=== PATIENT | male | born 1995 | race Caucasian/White ===

== ENCOUNTER 2019-06-14 20:25 | Emergency (ER) | payer SELFPAY ==
--- NOTE | 2019-06-14 20:34 | EDM.PDOCBH ---
<Williams Rosas - Last Filed: 06/14/19 20:32> ED HPI GENERAL MEDICAL PROBLEM - General Chief Complaint: Behavioral/Psych Stated Complaint: LAW ENFORCEMENT Time Seen by Provider: 06/14/19 20:27 Source of Information: Reports: Patient History Limitations: Reports: No Limitations - History of Present Illness INITIAL COMMENTS - FREE TEXT/NARRATIVE: Patient is an unfortunate 24-year-old male who presents emergency Department today with complaint of suicidal ideation. 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 Since that time patient has had suicidal thoughts he has not developed a specific plan and he does have history of suicidal ideation with admission to psychiatric facility last time in 2016 in [place]. He is not on any medication at this time and is requesting help with his suicidal thoughts - Related Data Allergies Allergy/AdvReac Type Severity Reaction Status Date / Time No Known Allergies Allergy Verified 06/14/19 20:30 Home Meds: Home Meds LORazepam [Ativan] 0.5 mg PO Q8H #12 tablet 06/15/19 [Rx] ED ROS GENERAL - Review of Systems Review Of Systems: See Below Constitutional: Denies: Fever, Chills Psychiatric: Reports: Anxiety, Depression, Suicidal Ideation. Denies: Agitation , Confusion ED EXAM, BEHAVIORAL HEALTH - Physical Exam Exam: See Below Exam Limited By: No Limitations General Appearance: Alert, WD/WN, Mild Distress, Other (Avoids eye contact) Throat/Mouth: Normal Inspection, Normal Lips, Normal Teeth, Normal Gums, Normal Oropharynx, Normal Voice, No Airway Compromise Head: Atraumatic, Normocephalic Neck: Normal Inspection, Supple, Non-Tender, Full Range of Motion Respiratory/Chest: No Respiratory Distress, Lungs Clear, Normal Breath Sounds, No Accessory Muscle Use, Chest Non-Tender Cardiovascular: Normal Peripheral Pulses, Regular Rate, Rhythm, No Edema, No Gallop, No JVD, No Murmur, No Rub Back Exam: Normal Inspection, Full Range of Motion, NT Extremities: Normal Inspection, Normal Range of Motion, Non-Tender, Normal Capillary Refill, No Pedal Edema Neurological: Alert, Oriented x 3. No: Normal Mood/Affect Psychiatric: Alert, Depressed Mood, Tearful, Suicidal Thoughts. No: Suicidal Plan Skin Exam: Warm, Dry COURSE, BEHAVIORAL HEALTH COMP - Course Vital Signs: Last Vital Signs Temp 36.4 C 06/15/19 08:10 Pulse 74 06/15/19 08:10 Resp 16 06/15/19 08:10 BP 121/76 06/15/19 08:10 Pulse Ox 96 06/15/19 08:10 Orders, Labs, Meds: Laboratory Tests 06/14/19 06/14/19 06/14/19 Range/Units 20:35 20:35 20:40 WBC 10.12 H (4.23-9.07) K/mm3 RBC 5.15 (4.63-6.08) M/mm3 Hgb 16.1 (13.7-17.5) gm/dl Hct 46.4 (40.1-51.0) % MCV 90.1 (79.0-92.2) fl MCH 31.3 (25.7-32.2) pg MCHC 34.7 (32.2-35.5) g/dl RDW Std Deviation 40.7 (35.1-43.9) fL Plt Count 351 H (163-337) K/mm3 MPV 10.0 (9.4-12.3) fl Neut % (Auto) 61.9 (34.0-67.9) % Lymph % (Auto) 25.7 (21.8-53.1) % Whiteside % (Auto) 8.4 (5.3-12.2) % Eos % (Auto) 3.5 (0.8-7.0) Baso % (Auto) 0.3 (0.1-1.2) % Neut # (Auto) 6.27 H (1.78-5.38) K/mm3 Lymph # (Auto) 2.60 (1.32-3.57) K/mm3 Whiteside # (Auto) 0.85 H (0.30-0.82) K/mm3 Eos # (Auto) 0.35 (0.04-0.54) K/mm3 Baso # (Auto) 0.03 (0.01-0.08) K/mm3 Manual Slide Review Normal smear Sodium (136-145) mEq/L Potassium (3.5-5.1) mEq/L Chloride (98-107) mEq/L Carbon Dioxide (21-32) mEq/L Anion Gap (5-15) BUN (7-18) mg/dL Creatinine (0.7-1.3) mg/dL Est Cr Clr Drug Dosing mL/min Estimated GFR (MDRD) (>60) mL/min BUN/Creatinine Ratio (14-18) Glucose (74-106) mg/dL Calcium (8.5-10.1) mg/dL Total Bilirubin (0.2-1.0) mg/dL AST (15-37) U/L ALT (16-63) U/L Alkaline Phosphatase (46-116) U/L Total Protein (6.4-8.2) g/dl Albumin (3.4-5.0) g/dl Globulin gm/dL Albumin/Globulin Ratio (1-2) TSH 3rd Generation (0.358-3.74) uIU/mL Urine Color Yellow (Yellow) Urine Appearance Clear (Clear) Urine pH 5.5 (5.0-8.0) Ur Specific [place] > or = 1.030 (1.005-1.030) Urine Protein 1+ H (Negative) Urine Glucose (UA) Negative (Negative) Urine Ketones Negative (Negative) Urine Occult Blood Negative (Negative) Urine Nitrite Negative (Negative) Urine Bilirubin Negative (Negative) Urine Urobilinogen 0.2 (0.2-1.0) Ur Leukocyte Esterase Negative (Negative) Urine RBC 0-5 (0-5) /hpf Urine WBC 0-5 (0-5) /hpf Ur Squamous Epith Cells 0-5 (0-5) /hpf Urine Bacteria Few (FEW) /hpf Urine Mucus Moderate H (FEW) /hpf Salicylates (2.8-20) mg/dL Urine Opiates Screen Negative (VNCQUN=325) Ur Buprenorphine Scrn Negative (CUTOFF=10) Ur Oxycodone Screen Negative (FHJ9IP=461) Urine Methadone Screen Negative (DEF8VK=554) Ur Propoxyphene Screen Negative (FFSBKB=374) Acetaminophen (10-30) ug/mL Ur Barbiturates Screen Negative (AMNJXW=559) Ur Tricyclics Screen Negative (EMLXEF=443) Ur Phencyclidine Scrn Negative (CUTOFF=25) Ur Amphetamine Screen Presumptive positive H (ZFXDQM=565) U Methamphetamines Scrn Presumptive positive H (MREUDF=455) U Benzodiazepines Scrn Negative (KXHQYT=885) U Cocaine Metab Screen Presumptive positive H (YAMDGF=545) U Marijuana (THC) Screen Presumptive positive H (CUTOFF=50) Ethyl Alcohol (0.00) gm% 06/14/19 06/14/19 Range/Units 20:40 20:40 WBC (4.23-9.07) K/mm3 RBC (4.63-6.08) M/mm3 Hgb (13.7-17.5) gm/dl Hct (40.1-51.0) % MCV (79.0-92.2) fl MCH (25.7-32.2) pg MCHC (32.2-35.5) g/dl RDW Std Deviation (35.1-43.9) fL Plt Count (163-337) K/mm3 MPV (9.4-12.3) fl Neut % (Auto) (34.0-67.9) % Lymph % (Auto) (21.8-53.1) % Whiteside % (Auto) (5.3-12.2) % Eos % (Auto) (0.8-7.0) Baso % (Auto) (0.1-1.2) % Neut # (Auto) (1.78-5.38) K/mm3 Lymph # (Auto) (1.32-3.57) K/mm3 [place] # (Auto) (0.30-0.82) K/mm3 Eos # (Auto) (0.04-0.54) K/mm3 Baso # (Auto) (0.01-0.08) K/mm3 Manual Slide Review Sodium 142 (136-145) mEq/L Potassium 4.0 (3.5-5.1) mEq/L Chloride 104 (98-107) mEq/L Carbon Dioxide 26 (21-32) mEq/L Anion Gap 16.0 H (5-15) BUN 14 (7-18) mg/dL Creatinine 1.1 (0.7-1.3) mg/dL Est Cr Clr Drug Dosing 116.02 mL/min Estimated GFR (MDRD) > 60 (>60) mL/min BUN/Creatinine Ratio 12.7 L (14-18) Glucose 121 H (74-106) mg/dL Calcium 9.0 (8.5-10.1) mg/dL Total Bilirubin 0.3 (0.2-1.0) mg/dL AST 20 (15-37) U/L ALT 36 (16-63) U/L Alkaline Phosphatase 85 (46-116) U/L Total Protein 8.7 H (6.4-8.2) g/dl Albumin 4.6 (3.4-5.0) g/dl Globulin 4.1 gm/dL Albumin/Globulin Ratio 1.1 (1-2) TSH 3rd Generation 1.460 (0.358-3.74) uIU/mL Urine Color (Yellow) Urine Appearance (Clear) Urine pH (5.0-8.0) Ur Specific [place] (1.005-1.030) Urine Protein (Negative) Urine Glucose (UA) (Negative) Urine Ketones (Negative) Urine Occult Blood (Negative) Urine Nitrite (Negative) Urine Bilirubin (Negative) Urine Urobilinogen (0.2-1.0) Ur Leukocyte Esterase (Negative) Urine RBC (0-5) /hpf Urine WBC (0-5) /hpf Ur Squamous Epith Cells (0-5) /hpf Urine Bacteria (FEW) /hpf Urine Mucus (FEW) /hpf Salicylates 4.0 (2.8-20) mg/dL Urine Opiates Screen (INZKFW=637) Ur Buprenorphine Scrn (CUTOFF=10) Ur Oxycodone Screen (JOT0CI=062) Urine Methadone Screen (ENN4EM=706) Ur Propoxyphene Screen (OBCIAP=469) Acetaminophen 0 L (10-30) ug/mL Ur Barbiturates Screen (ZOYADN=806) Ur Tricyclics Screen (JFSGJF=605) Ur Phencyclidine Scrn (CUTOFF=25) Ur Amphetamine Screen (MJTMHO=917) U Methamphetamines Scrn (BPGPLQ=168) U Benzodiazepines Scrn (FSDTZB=454) U Cocaine Metab Screen (QXUQNT=327) U Marijuana (THC) Screen (CUTOFF=50) Ethyl Alcohol 0.10 (0.00) gm% Medications Discontinued Medications Generic Name Dose Route Start Last Admin Trade Name Freq PRN Reason Stop Dose Admin Lorazepam 1 mg 06/15/19 07:50 06/15/19 08:08 Ativan PO 06/15/19 07:51 1 mg ONETIME ONE Administration Departure - Departure Disposition: DC/Tfer to Other 70 Clinical Impression: Suicidal ideation - Discharge Information Prescriptions: LORazepam [Ativan] 0.5 mg PO Q8H #12 tablet Referrals: PCP,Unknown [Ordering Only Provider] - Forms: ED Department Discharge Additional Instructions: Return to the emergency room with any questions problems or worsening symptoms. You are given a prescription for Ativan 0.5 mg 3 times a day for the next 4 days. Discharge to [facility]. Sepsis Event Note - Evaluation Sepsis Screening Result: No Definite Risk - Focused Exam Vital Signs: Vital Signs Temp Pulse Resp BP Pulse Ox 06/15/19 08:10 36.4 C 74 16 121/76 96 Date Exam was Performed: 06/14/19 Time Exam was Performed: 20:32 <Jc Bass - Last Filed: 06/15/19 08:04> COURSE, BEHAVIORAL HEALTH COMP - Course Re-Assessment/Re-Exam: Have assumed care from Mirian Rosas after change of shift. Drug screen is pos for meth, cocaine, marijuana, and blood alcohol also elevated at 0.1. We have let him sleep here in the ED for the night. See how he is in the morning and see what type of help he may be interested in. 07:30. Tanna, one of our social workers has visited with him. She is going to contact [facility] and see if they have any beds available. Checked on patient a few minutes ago. He is not hungry, does not want anything to eat at this time but is acting quite anxious. Have ordered ativan 1 mg PO. Tanna states he mostly wants to get back home to [place]. It is now change of shift. Will transfer care to Dr García. Sepsis Event Note - Focused Exam Date Exam was Performed: 06/15/19 Time Exam was Performed: 08:04 <Ty García - Last Filed: 06/15/19 09:57> COURSE, BEHAVIORAL HEALTH COMP - Course Re-Assessment/Re-Exam Date: 06/15/19 (She is not actively suicidal at this point he has no intent of hurting himself at this point. On initial evaluation he felt suicidal however did not have a plan and was under the influence at that point.) Medical Clearance: 06/15/19 09:51 Patient will be discharged to the [facility] with Ativan .5 mg hours for 4 days. Medically cleared and he is stable Departure - Departure Time of Disposition: 09:52 Sepsis Event Note - Focused Exam Date Exam was Performed: 06/15/19 Time Exam was Performed: 09:50
[2019-06-14 21:35] LABS: ACETAMINOPHEN 0 ug/mL (10-30)
[2019-06-15] MEDS ORDERED: LORazepam 1 MG Tab PO ONE (07:50)
== END 2019-06-15 10:38 | disposition other institution (70) ==
LOC: JD.ED 20:25
DX: R45.851 Suicidal ideations (principal)
CPT/HCPCS: 36415; 80053; 80306; 80320; 80329; 81001; 84443; 85025; 99285; A9270; 99283; G0480